=== PATIENT | female | born 1985 | race Two or more races ===

== ENCOUNTER → 2022-03-11 | Outpatient (CLI) | payer OTHER ==
[2022-03-11 13:14] LABS: Basophils # (auto) 0 10 ^3/uL (0-0.2); Eosinophils # (auto) 0.1 10 ^3/uL (0-0.8); Lymphocytes # (auto) 1.7 10 ^3/uL (0.4-5.4); Monocytes # (auto) 0.3 10 ^3/uL (0-1.3)
[2022-03-11 13:16] LABS: Basophils % (auto) 0.5 % (0.0-2.0); Eosinophils % (auto) 1.2 % (0.0-7.0); Hematocrit 35.6 % (36.0-46.0); Hemoglobin 11.3 g/dL (12.2-16.2); Mean Corpuscular Hemoglobin 24.8 pg (28.0-32.0); Mean Corpuscular Hgb Conc. 31.8 g/dL (32.0-36.0); Monocytes % (auto) 7.1 % (0.0-12.0); Neutrophils # (auto) 2.7 10 ^3/uL (1.6-8.6); Neutrophils % (auto) 56.2 % (37.0-80.0); Nucleated Red Blood Cells % 0.1 %; Red Blood Cells 4.56 10^6/uL (4.0-5.20); Red Cell Distribution Width 13.4 % (11.8-14.3); White Blood Cell 4.8 10^3/uL (4.4-10.8)
[2022-03-11 13:49] LABS: Follicle Stimulating Hormone 8.63 IU/L (SEE BELOW); Leuteinizing Hormone 0.9 IU/L
== END | disposition home or self-care (01) ==
LOC: LAB 12:49
PROVIDERS: ATTEND Obstetrics & Gynecology
DX: Z11.3 Encounter for screening for infections with a predominantly sexual mode of transmission (principal)
CPT/HCPCS: 36415; 82670; 83001; 83002; 84403; 84443; 85025

== ENCOUNTER 2022-03-14 18:24 | Emergency (ER) | payer OTHER ==
[~2022-03-14] VITALS: Ht 160 cm; Wt 60.0 kg
[2022-03-14 21:36] VITALS: BP 110/68
[2022-03-14] MEDS ORDERED: CYCL-837 PO (22:25)
[2022-03-14] MEDS ORDERED: IBUP600T28 PO (22:25)
== END 2022-03-14 23:00 | disposition home or self-care (01) ==
LOC: ER 18:24
DX: S16.1XXA Strain of muscle, fascia and tendon at neck level, initial encounter (principal); S39.012A Strain of muscle, fascia and tendon of lower back, initial encounter; S60.211A Contusion of right wrist, initial encounter; R51.9 Headache, unspecified; V43.62XA Car passenger injured in collision with other type car in traffic accident, initial encounter; Y93.89 Activity, other specified; Y92.410 Unspecified street and highway as the place of occurrence of the external cause; Y99.8 Other external cause status
CPT/HCPCS: 72040; 72100; 73110